=== PATIENT | female | born 1945 | race Caucasian/White ===

== ENCOUNTER 2016-11-19 15:45 | Inpatient (IN) | payer OTHER, MEDICARE ==
[~2016-11-19] VITALS: Ht 180.3 cm; Wt 85.7 kg
[2016-11-19] MEDS ORDERED: SODIUM CHLORIDE FLUSH 10ML SYR IVF ONE (16:00)
[2016-11-19] MEDS ORDERED: SODIUM CHLORIDE 0.9% 1,000ML IVBOLUS ONE (16:00)
[2016-11-19] MEDS ORDERED: ONDANSETRON 2MG/ML, 2ML ONE (16:24)
[2016-11-19 16:26] LABS: HEMATOCRIT 22.5 % (34.6-47.8); HEMOGLOBIN 7.6 g/dL (11.7-16.4); WHITE BLOOD COUNT 6.9 x10^3/uL (3.4-10)
[2016-11-19 16:27] LABS: ASPARTATE AMINO TRANSFERASE 39 U/L (15-37); BLOOD UREA NITROGEN 35 mg/dL (7-18)
[2016-11-19] MEDS ORDERED: ONDANSETRON ODT 4 MG PO ONE (16:30)
[2016-11-19] MEDS ORDERED: PLEASE ENTER ALLERGIES MC SCH ×2 (16:30)
[2016-11-19 16:47] LABS: IS PT STATUS REG ER OR PRE ER? YES
[2016-11-19] MEDS ORDERED: PANTOPRAZOLE 80 MG in SODIUM CHLORIDE 0.9% 50 ML IVPB ONE (16:49)
[2016-11-19] MEDS ORDERED: PANTOPRAZOLE 80 MG in SODIUM CHLORIDE 0.9% 100 ML IV SCH (16:49)
[2016-11-19 16:59] LABS: DIFF TOTAL CELLS COUNTED 100 CELL DIFF
[2016-11-19 17:06] LABS: VERIFY COUNTS? YES
[2016-11-19 17:07] LABS: ANISOCYTOSIS 1+; POLYCHROMASIA 1+
[2016-11-19] MEDS ORDERED: SODIUM CHLORIDE FLUSH 10ML SYR IVF PRN (17:30)
[2016-11-19] MEDS: SODIUM CHLORIDE 0.9% 1,000 ML IV SCH (18:07)
[2016-11-19] MEDS ORDERED: ONDANSETRON 2MG/ML, 2ML IVPush ONE (18:30)
[2016-11-19] MEDS ORDERED: ONDANSETRON 2MG/ML, 2ML IVPush PRN (18:30)
[2016-11-19] MEDS ORDERED: BISACODYL 10 MG SUPP PR PRN (18:30)
[2016-11-19 20:00] VITALS: BP 127/70
[2016-11-19 22:35] LABS: HEMATOCRIT 21.6 % (34.6-47.8)
[2016-11-19 23:42] VITALS: BP 113/67
[2016-11-19 23:59] VITALS: BP 117/69
[2016-11-20] VITALS (9 sets, daily range): BP systolic 100–136; BP diastolic 61–76
[2016-11-20] MEDS: PANTOPRAZOLE 80 MG in SODIUM CHLORIDE 0.9% 100 ML IV SCH ×2 (04:49→13:22)
[2016-11-20 04:55] LABS: HEMATOCRIT 25.7 % (34.6-47.8); HEMOGLOBIN 8.7 g/dL (11.7-16.4); WHITE BLOOD COUNT 5.3 x10^3/uL (3.4-10)
[2016-11-20 05:18] LABS: ASPARTATE AMINO TRANSFERASE 46 U/L (15-37); BLOOD UREA NITROGEN 26 mg/dL (7-18)
[2016-11-20 11:01] LABS: HEMATOCRIT 25.1 % (34.6-47.8); HEMOGLOBIN 8.5 g/dL (11.7-16.4)
[2016-11-20] MEDS: SODIUM CHLORIDE 0.9% 1,000 ML IV SCH (13:22)
[2016-11-20 16:05] LABS: HEMATOCRIT 24.9 % (34.6-47.8); HEMOGLOBIN 8.3 g/dL (11.7-16.4)
[2016-11-20] MEDS ORDERED: GOLYTELY 4,000ML ORAL.SOL PO ONE (18:00)
[2016-11-21] MEDS: SODIUM CHLORIDE 0.9% 1,000 ML IV SCH ×2 (01:28→18:17)
[2016-11-21 01:54] VITALS: BP 153/77
[2016-11-21] MEDS: PANTOPRAZOLE 80 MG in SODIUM CHLORIDE 0.9% 100 ML IV SCH ×2 (02:02→16:59)
[2016-11-21 06:32] LABS: BLOOD UREA NITROGEN 18 mg/dL (7-18)
[2016-11-21 07:02] LABS: HEMATOCRIT 25.8 % (34.6-47.8); HEMOGLOBIN 8.7 g/dL (11.7-16.4); WHITE BLOOD COUNT 5.7 x10^3/uL (3.4-10)
[2016-11-21 07:28] VITALS: BP 105/63
[2016-11-21] MEDS ORDERED: FENTANYL PF 100 MCG/2ML ONE ×2 (09:06→09:25)
[2016-11-21] MEDS ORDERED: MIDAZOLAM 1 MG/ML, 5ML ONE ×2 (09:06→09:25)
[2016-11-21] MEDS ORDERED: LORazepam 2 MG/ML, 1ML ONE (12:17)
[2016-11-21] MEDS ORDERED: LORazepam 2 MG/ML, 1ML IVPush PRN (12:30)
[2016-11-21] MEDS ORDERED: OMNIPAQUE 350 MG/ML, 100ML BOTTLE ONE (13:26)
[2016-11-21 13:33] VITALS: BP 128/71
[2016-11-21 19:00] VITALS: BP 101/64
[2016-11-22 00:41] VITALS: BP 120/79
[2016-11-22] MEDS: PANTOPRAZOLE 80 MG in SODIUM CHLORIDE 0.9% 100 ML IV SCH ×3 (03:37→23:55)
[2016-11-22] MEDS: SODIUM CHLORIDE 0.9% 1,000 ML IV SCH (04:25)
[2016-11-22 04:28] LABS: PATH.CAST-FLAG NOT PRESENT; SPERM-FLAG NOT PRESENT; SRC-FLAG NOT PRESENT; XTAL-FLAG NOT PRESENT; YLC-FLAG NOT PRESENT
[2016-11-22 04:35] LABS: WHITE BLOOD COUNT 3.4 x10^3/uL (3.4-10)
[2016-11-22 04:37] LABS: BLOOD UREA NITROGEN 12 mg/dL (7-18); HEMATOCRIT 19.1 % (34.6-47.8); HEMOGLOBIN 6.6 g/dL (11.7-16.4)
[2016-11-22 07:40] VITALS: BP 111/68
[2016-11-22 12:33] LABS: HEMATOCRIT 25.7 % (34.6-47.8); HEMOGLOBIN 8.7 g/dL (11.7-16.4)
[2016-11-22 13:17] VITALS: BP 133/72
[2016-11-22] MEDS ORDERED: ALPRazolam 1MG TABLET ONE (15:30)
[2016-11-22] MEDS ORDERED: POTASSIUM CHLORIDE 20 MEQ TAB.ER.PRT PO ONE (18:30)
[2016-11-22 19:27] VITALS: BP 107/62
[2016-11-23 04:00] VITALS: BP 119/65
[2016-11-23 05:57] LABS: HEMOGLOBIN 7.1 g/dL (11.7-16.4); WHITE BLOOD COUNT 3.7 x10^3/uL (3.4-10)
[2016-11-23 07:41] LABS: HEMATOCRIT 23.1 % (34.6-47.8); HEMOGLOBIN 7.7 g/dL (11.7-16.4); WHITE BLOOD COUNT 3.7 x10^3/uL (3.4-10)
[2016-11-23 08:00] VITALS: BP 117/73
[2016-11-23] MEDS: PANTOPRAZOLE 80 MG in SODIUM CHLORIDE 0.9% 100 ML IV SCH ×2 (10:50→20:56)
[2016-11-23] MEDS ORDERED: ALPRazolam 1MG TABLET ONE (11:55)
[2016-11-23 12:35] LABS: HEMATOCRIT 25.9 % (34.6-47.8); HEMOGLOBIN 8.8 g/dL (11.7-16.4)
[2016-11-23 14:30] VITALS: BP 122/70
[2016-11-23 16:42] VITALS: BP 122/70
[2016-11-23 18:42] VITALS: BP 136/75
[2016-11-24 02:05] VITALS: BP 162/68
[2016-11-24 02:15] VITALS: BP 138/76
[2016-11-24 05:07] LABS: HEMOGLOBIN 7.1 g/dL (11.7-16.4); WHITE BLOOD COUNT 3.7 x10^3/uL (3.4-10)
[2016-11-24 05:11] LABS: HEMATOCRIT 21.2 % (34.6-47.8)
[2016-11-24 05:12] LABS: BLOOD UREA NITROGEN 12 mg/dL (7-18)
[2016-11-24] MEDS: PANTOPRAZOLE 80 MG in SODIUM CHLORIDE 0.9% 100 ML IV SCH (06:15)
[2016-11-24 06:52] VITALS: BP 129/80
[2016-11-24 11:54] LABS: HEMATOCRIT 24.5 % (34.6-47.8); HEMOGLOBIN 8.2 g/dL (11.7-16.4)
[2016-11-24 14:28] VITALS: BP 133/74
[2016-11-24] MEDS: OMEPRAZOLE 20 MG CAPSULE.DR PO SCH (18:51)
[2016-11-24 20:16] VITALS: BP 146/77
[2016-11-25 02:21] VITALS: BP 114/69
[2016-11-25 04:40] LABS: HEMOGLOBIN 7.1 g/dL (11.7-16.4); WHITE BLOOD COUNT 3.4 x10^3/uL (3.4-10)
[2016-11-25 04:45] LABS: HEMATOCRIT 21.6 % (34.6-47.8)
[2016-11-25 04:46] LABS: BLOOD UREA NITROGEN 9 mg/dL (7-18)
[2016-11-25 06:51] LABS: DIFF TOTAL CELLS COUNTED 100 CELL DIFF
[2016-11-25 06:59] LABS: ANISOCYTOSIS 1+; HYPOCHROMIA 1+; POLYCHROMASIA 1+; VERIFY COUNTS? YES
[2016-11-25] MEDS: OMEPRAZOLE 20 MG CAPSULE.DR PO SCH (08:16)
[2016-11-25 08:20] VITALS: BP 146/72
[2016-11-25] MEDS ORDERED: LIDOCAINE 1%, 20ML ONE (09:32)
[2016-11-25] MEDS ORDERED: NALOXONE 1 MG/ML, 2ML ONE (09:52)
[2016-11-25] MEDS ORDERED: FENTANYL PF 100 MCG/2ML ONE (09:52)
[2016-11-25] MEDS ORDERED: MIDAZOLAM 1 MG/ML, 5ML ONE (09:52)
[2016-11-25] MEDS ORDERED: FLUMAZENIL 0.1 MG/1 ML, 5ML ONE (09:52)
[2016-11-25 11:00] VITALS: BP 136/78
[2016-11-25] MEDS ORDERED: OMEP-110 PO (15:10)
[2016-11-25] MEDS ORDERED: ALPR-475 PO (17:25)
== END 2016-11-25 18:12 | disposition home or self-care (01) | DRG 673 ==
LOC: ED 17:02 → EDIP 17:03 → ED 17:38 → 4EST 18:24 → 3NW 11-23 18:47
PROVIDERS: ADMIT Hospitalist; ATTEND Hospitalist
PROC: 30233N1 Transfusion of Nonautologous Red Blood Cells into Peripheral Vein, Percutaneous Approach (ICD-10-PCS; 2016-11-19)
PROC: 02HV33Z Insertion of Infusion Device into Superior Vena Cava, Percutaneous Approach (ICD-10-PCS; 2016-11-21)
PROC: 0DB68ZX Excision of Stomach, Via Natural or Artificial Opening Endoscopic, Diagnostic (ICD-10-PCS; 2016-11-21)
PROC: 0DBK8ZZ Excision of Ascending Colon, Via Natural or Artificial Opening Endoscopic (ICD-10-PCS; 2016-11-21)
PROC: 0QB13ZX Excision of Sacrum, Percutaneous Approach, Diagnostic (ICD-10-PCS; principal; 2016-11-25)
DX: N17.9 Acute kidney failure, unspecified (principal); K25.4 Chronic or unspecified gastric ulcer with hemorrhage; E87.2 Acidosis; C79.51 Secondary malignant neoplasm of bone; C16.9 Malignant neoplasm of stomach, unspecified; E44.1 Mild protein-calorie malnutrition; D62 Acute posthemorrhagic anemia; C50.919 Malignant neoplasm of unspecified site of unspecified female breast; I10 Essential (primary) hypertension; W10.9XXA Fall (on) (from) unspecified stairs and steps, initial encounter; Z82.49 Family history of ischemic heart disease and other diseases of the circulatory system; Z66 Do not resuscitate; Z85.3 Personal history of malignant neoplasm of breast; Z90.12 Acquired absence of left breast and nipple; Z92.21 Personal history of antineoplastic chemotherapy; Z68.26 Body mass index [BMI] 26.0-26.9, adult
CPT/HCPCS: 20225; 36415; 36569; 71010; 71260; 74177; 76937; 77001; 77012; 78306; 80048; 80053; 81003; 82378; 83690; 84484; 85014; 85018; 85025; 85610; 85730; 86300; 86677; 86850; 86900; 86923; 87086; 88305; 88307; 88311; 93005; 96361; 96365; 96375; 99152; 99153; 99156; 99157; J2250; J2405; J3010; J3490; Q9967; A9503; C1751; C9113; C9898; J2060; J2310; J7030; P9016

== ENCOUNTER 2016-12-25 08:40 | Day surgery (SDC) | payer OTHER ==
[~2016-12-25] VITALS: Ht 172.7 cm; Wt 79.8 kg
[~2016-12-25 08:40] MED LIST: ALPR-475 PO; OMEP-110 PO
[2016-12-25] MEDS ORDERED: SODIUM CHLORIDE 0.9% 1,000 ML IV SCH (09:21)
[2016-12-25 09:36] VITALS: BP 136/78
[2016-12-25] MEDS ORDERED: CEFAZOLIN PMX 1GM/50ML 50 ML ONE (09:42)
[2016-12-25] MEDS ORDERED: LIDOCAINE 1%, 20ML ONE (09:59)
[2016-12-25] MEDS ORDERED: CEFAZOLIN PMX 1GM/50ML 50 ML IV ONE (10:00)
[2016-12-25] MEDS ORDERED: FENTANYL PF 100 MCG/2ML ONE ×2 (10:24)
[2016-12-25] MEDS ORDERED: FLUMAZENIL 0.1 MG/1 ML, 5ML ONE (10:24)
[2016-12-25] MEDS ORDERED: MIDAZOLAM 1 MG/ML, 5ML ONE ×2 (10:24)
[2016-12-25] MEDS ORDERED: NALOXONE 1 MG/ML, 2ML ONE (10:25)
== END 2016-12-25 12:15 ==
LOC: OUT 08:40
PROVIDERS: ATTEND Internal Medicine Hematology & Oncology
DX: Z45.2 Encounter for adjustment and management of vascular access device (principal); C16.9 Malignant neoplasm of stomach, unspecified; Z85.3 Personal history of malignant neoplasm of breast; Z98.890 Other specified postprocedural states
CPT/HCPCS: 36561; 76937; 77001; 99156; 99157; C1788; J0690; J1642; J2250; J3010; J3490; J7030; J2310

== ENCOUNTER → 2017-05-08 | Outpatient (CLI) | payer OTHER ==
[~2017-05-08] MED LIST changes: +OMNIPAQUE 350 MG/ML, 100ML BOTTLE ONE
== END | disposition home or self-care (01) ==
LOC: PETCFH 08:10
PROVIDERS: ATTEND Internal Medicine Hematology & Oncology
DX: C79.51 Secondary malignant neoplasm of bone (principal); C50.919 Malignant neoplasm of unspecified site of unspecified female breast; M48.50XA Collapsed vertebra, not elsewhere classified, site unspecified, initial encounter for fracture; K75.3 Granulomatous hepatitis, not elsewhere classified; D73.89 Other diseases of spleen; K76.89 Other specified diseases of liver; Z90.12 Acquired absence of left breast and nipple
CPT/HCPCS: 71260; 74177; 78306; A9503; Q9967

== ENCOUNTER → 2018-05-13 | Outpatient (CLI) | payer OTHER | END | disposition home or self-care (01) | LOC: PETCFH 09:57 | PROVIDERS: ATTEND Internal Medicine Hematology & Oncology | DX: C79.51 Secondary malignant neoplasm of bone (principal); C50.912 Malignant neoplasm of unspecified site of left female breast; K76.0 Fatty (change of) liver, not elsewhere classified; D73.89 Other diseases of spleen | CPT/HCPCS: 71260; 74177; 78306; A9503; Q9967 ==

== ENCOUNTER → 2019-09-30 | Outpatient (CLI) | payer OTHER ==
[~2019-09-30] MED LIST changes: -ALPR-475 PO; +ALPR0.5T7 PO
== END | disposition home or self-care (01) ==
LOC: RAD 09:21
PROVIDERS: ATTEND Internal Medicine Hematology & Oncology
DX: C50.919 Malignant neoplasm of unspecified site of unspecified female breast (principal); C79.51 Secondary malignant neoplasm of bone; M48.54XA Collapsed vertebra, not elsewhere classified, thoracic region, initial encounter for fracture; M41.85 Other forms of scoliosis, thoracolumbar region
CPT/HCPCS: 71260; 74177; 78306; A9503; Q9967

== ENCOUNTER → 2019-12-09 | Outpatient (CLI) | payer OTHER ==
[~2019-12-09] MED LIST changes: -OMNIPAQUE 350 MG/ML, 100ML BOTTLE ONE
== END | disposition home or self-care (01) ==
LOC: CFH 14:26
PROVIDERS: ATTEND Internal Medicine Hematology & Oncology
DX: I82.491 Acute embolism and thrombosis of other specified deep vein of right lower extremity (principal); M79.89 Other specified soft tissue disorders; I82.409 Acute embolism and thrombosis of unspecified deep veins of unspecified lower extremity